=== PATIENT | female | born 1980 | race Caucasian/White ===

== ENCOUNTER 2020-06-06 16:23 | Emergency (ER) | payer OTHER ==
[~2020-06-06] VITALS: Ht 160 cm; Wt 113.4 kg
[2020-06-06] MEDS ORDERED: AMPICILLIN TRI500 MG (16:32)
== END 2020-06-06 20:31 | disposition home or self-care (01) ==
LOC: ER 16:23
DX: T78.3XXA Angioneurotic edema, initial encounter (principal)